=== PATIENT | male | born 2000 | race Caucasian/White ===

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

== ENCOUNTER 2022-07-12 18:57 | Emergency (ER) | payer OTHER ==
[2022-07-12 19:04] VITALS: BP 139/83; PULSE 89; RESP 18; TEMP 100.6; BMI 27.8
[2022-07-12 21:39] LABS: BASO % 0.4 % (0-2.0); EOS % 0.7 % (0-4.5); HEMATOCRIT 42.4 % (35.4-49); HEMOGLOBIN 14.4 GM/dL (11.7-16.9); LYMPH % 12.9 % (8-40); MCH 28.8 pg (25.7-33.7); MCHC 33.9 g/dl (32.0-35.9); MEAN CELL VOLUME 84.9 fl (80-96); MEAN PLT VOLUME 8.1 fl (7.5-11.1); MONO % 11.2 % (3.8-10.2); NEUT % 74.8 % (42.8-82.8); PLATELET COUNT 221 10^3/uL (134-434); RBC 4.99 M/mm3 (4.00-5.60); RDW 13.1 % (11.9-15.9); WHITE BLOOD COUNT 11.4 K/mm3 (4.0-10.0)
[2022-07-12 21:51] LABS: CALCIUM 9.1 mg/dL (8.5-10.1)
[2022-07-12 21:52] LABS: BLOOD UREA NITROGEN 12.3 mg/dL (7-18)
[2022-07-12 21:55] LABS: CREATININE 0.9 mg/dL (0.55-1.3)
[2022-07-12] MEDS ORDERED: AMOX TR/POT CLAV 500MG/125MG TABLETS (FP) PO ONE (21:58)
[2022-07-12] MEDS ORDERED: AMOX TR/POT CLAV 500MG/125MG TABLETS (FP) ONE (22:05)
== END 2022-07-12 22:08 | disposition home or self-care (01) ==
LOC: JERFT 18:57
DX: B37.83 Candidal cheilitis (principal)
CPT/HCPCS: 36415; 80048; 85025; 86780; 87070; 87077; 87186; 87205; 99283-25

== ENCOUNTER 2023-02-17 13:35 | Emergency (ER) | payer OTHER ==
[2023-02-17] MEDS ORDERED: IBUPROFEN 600 MG TABLET (FP) PO ONE ×2 (13:59→14:46)
[2023-02-17 14:15] VITALS: BP 125/87; PULSE 74; RESP 16; TEMP 98.5; BMI 28.2
== END 2023-02-17 14:54 | disposition home or self-care (01) ==
LOC: FER 13:35
DX: S99.912A Unspecified injury of left ankle, initial encounter (principal); W10.9XXA Fall (on) (from) unspecified stairs and steps, initial encounter; X50.0XXA Overexertion from strenuous movement or load, initial encounter; Y99.0 Civilian activity done for income or pay
CPT/HCPCS: 73610-TC-LT-FY; 73630-TC-LT; 99283-25

== ENCOUNTER 2024-01-26 22:14 | Emergency (ER) | payer SELFPAY ==
[2024-01-26 22:57] VITALS: BP 134/76; PULSE 74; RESP 17; TEMP 98.2; BMI 27.1
[2024-01-26] MEDS ORDERED: IBUPROFEN 600 MG TABLET (FP) PO ONE (23:15)
[2024-01-26] MEDS ORDERED: METHOCARBAMOL 500 MG TABLET ONE (23:16)
[2024-01-26] MEDS: METHOCARBAMOL 500 MG TABLET PO ONE (23:20)
[2024-01-26] MEDS: IBUPROFEN 600 MG TABLET (FP) PO ONE (23:20)
== END 2024-01-26 23:29 | disposition home or self-care (01) ==
LOC: FER 22:14
DX: S16.1XXA Strain of muscle, fascia and tendon at neck level, initial encounter (principal); S00.03XA Contusion of scalp, initial encounter; Y04.8XXA Assault by other bodily force, initial encounter
CPT/HCPCS: 70450-TC; 99284-25